=== PATIENT | male | born 1940 | race Caucasian/White ===

== ENCOUNTER 2017-10-29 21:26 | Inpatient (IN) | payer OTHER ==
[~2017-10-29] VITALS: Ht 182.9 cm; Wt 98.0 kg
[2017-10-29 22:14] LABS: BASOPHIL (%) 0.6 % (0-1); BASOPHIL COUNT 0.1 K/uL (0-0.1); EOSINOPHIL (%) 1.9 % (0-5); EOSINOPHIL COUNT 0.3 K/uL (0-0.3); HEMATOCRIT 42.1 % (38.0-50.0); HEMOGLOBIN 14.1 G/DL (12.5-16.6); IMMATURE GRANULOCYTE (%) 0.8 % (0.0-0.7); LYMPHOCYTE (%) 9.2 % (15-42); LYMPHOCYTE COUNT 1.6 K/uL (1.0-2.8); MCH 31.1 PG (29.0-34.0); MCHC 33.5 G/DL (30.0-36.0); MCV 92.7 FL (86-99); MONOCYTE (%) 6.2 % (3-12); MONOCYTE COUNT 1.1 K/uL (0-0.8); NEUTROPHIL (%) 81.3 % (45-76); NEUTROPHIL COUNT 14.5 K/uL (1.8-6.4); PLATELET COUNT 234 K/uL (156-360); RBC DIS.WIDTH-CV 12.3 % (11.8-14.6); RBC DIS.WIDTH-SD 42.3 % (39-53); RED BLOOD COUNT 4.54 M/uL (4.00-5.50); WHITE BLOOD COUNT 17.8 K/uL (4.1-10.2)
[2017-10-29 22:26] LABS: CHLORIDE 102 mEq/L (99-109); POTASSIUM 4.1 mEq/L (3.7-5.4); SODIUM 132 mEq/L (136-147)
[2017-10-29 22:28] LABS: GLUCOSE 111 mg/dL (70-99)
[2017-10-29 22:31] LABS: CREATININE 1.2 mg/dL (0.6-1.3); GFR ESTIMATE (CALCULATED) > 59 mL/min/ (58.99-99999); SERUM ETHYL ALCOHOL 169 mg/dL
[2017-10-29 22:32] LABS: UREA NITROGEN (BUN) 19 mg/dL (9-23)
[2017-10-29 22:34] LABS: CREATINE KINASE 171 IU/L (1-294)
[2017-10-29 22:40] LABS: PTT 19.4 SEC (25-37)
[2017-10-30 05:36] VITALS: BP 142/87
[2017-10-30 06:59] LABS: HEMATOCRIT 37.5 % (38.0-50.0); HEMOGLOBIN 12.4 G/DL (12.5-16.6); MCH 30.4 PG (29.0-34.0); MCHC 33.1 G/DL (30.0-36.0); MCV 91.9 FL (86-99); PLATELET COUNT 210 K/uL (156-360); RBC DIS.WIDTH-CV 12.1 % (11.8-14.6); RBC DIS.WIDTH-SD 41.1 % (39-53); RED BLOOD COUNT 4.08 M/uL (4.00-5.50)
[2017-10-30 07:27] LABS: CHLORIDE 103 MEQ/L (99-109); CREATININE 1.2 MG/DL (0.6-1.3); GFR ESTIMATE (CALCULATED) > 59 mL/min/ (58.99-99999); GLUCOSE 103 mg/dL (70-99); POTASSIUM 4.5 MEQ/L (3.7-5.4); SODIUM 134 MEQ/L (136-147); UREA NITROGEN (BUN) 19 mg/dL (9-23)
[2017-10-30 07:43] VITALS: BP 136/60
[2017-10-30 08:00] LABS: TROP-I INTERPRETATION NEGATIVE; TROPONIN-I < 0.01 ng/mL (0.0-0.30)
[2017-10-30 11:18] VITALS: BP 144/69
[2017-10-30] MEDS ORDERED: PLAVIX75 MG PO (13:33)
[2017-10-30] MEDS ORDERED: PEPCID20 MG PO (13:34)
[2017-10-30] MEDS ORDERED: SYNTHROID25 MCG PO (13:35)
[2017-10-30] MEDS ORDERED: PRAVACHOL40 MG PO (13:36)
[2017-10-30] MEDS ORDERED: ASPIRIN325 MG PO (13:37)
[2017-10-30] MEDS ORDERED: LISINOPRIL20 MG PO (13:38)
[2017-10-30] MEDS ORDERED: NORVASC10 MG PO (13:39)
[2017-10-30] MEDS ORDERED: VITAMIN D31000 UNI2 PO (13:43)
[2017-10-30 15:12] LABS: TROP-I INTERPRETATION NEGATIVE; TROPONIN-I < 0.01 ng/mL (0.0-0.30)
[2017-10-30 15:41] VITALS: BP 147/67
[2017-10-30 20:09] LABS: HEMATOCRIT 37.8 % (38.0-50.0); HEMOGLOBIN 12.7 G/DL (12.5-16.6); MCH 31.2 PG (29.0-34.0); MCHC 33.6 G/DL (30.0-36.0); MCV 92.9 FL (86-99); PLATELET COUNT 208 K/uL (156-360); RBC DIS.WIDTH-CV 12.5 % (11.8-14.6); RBC DIS.WIDTH-SD 42.6 % (39-53); RED BLOOD COUNT 4.07 M/uL (4.00-5.50); WHITE BLOOD COUNT 11.6 K/uL (4.1-10.2)
[2017-10-30 22:27] LABS: TROP-I INTERPRETATION NEGATIVE; TROPONIN-I < 0.01 ng/mL (0.0-0.30)
[2017-10-30 23:58] VITALS: BP 124/58
[2017-10-31 03:45] VITALS: BP 124/67
[2017-10-31 07:35] VITALS: BP 135/74
[2017-10-31 08:34] LABS: HEMATOCRIT 39.1 % (38.0-50.0); MCH 31.7 PG (29.0-34.0); MCHC 33.2 G/DL (30.0-36.0); MCV 95.4 FL (86-99); PLATELET COUNT 209 K/uL (156-360); RBC DIS.WIDTH-CV 12.5 % (11.8-14.6); RBC DIS.WIDTH-SD 43.8 % (39-53); WHITE BLOOD COUNT 12.4 K/uL (4.1-10.2)
[2017-10-31 09:00] LABS: ALBUMIN 3.9 G/DL (3.2-4.8); ALKALINE PHOSPHATASE 61 IU/L (3-129); ALT (GPT) 14 IU/L (3-49); AST (GOT) 23 IU/L (2-34); DIRECT BILIRUBIN 0.3 mg/dL (0.0-0.3); TOTAL BILIRUBIN 1.7 MG/DL (0.0-1.0); TOTAL PROTEIN 5.9 G/DL (6.4-8.3)
[2017-10-31 11:25] VITALS: BP 132/74
[2017-10-31 15:26] VITALS: BP 124/73
[2017-10-31 19:46] LABS: HEMOGLOBIN 12.9 G/DL (12.5-16.6); MCH 30.9 PG (29.0-34.0); MCHC 32.3 G/DL (30.0-36.0); MCV 95.7 FL (86-99); PLATELET COUNT 204 K/uL (156-360); RBC DIS.WIDTH-CV 12.5 % (11.8-14.6); RBC DIS.WIDTH-SD 44.1 % (39-53); RED BLOOD COUNT 4.18 M/uL (4.00-5.50); WHITE BLOOD COUNT 13.7 K/uL (4.1-10.2)
[2017-10-31 20:14] VITALS: BP 134/67
[2017-10-31 23:59] VITALS: BP 115/71
[2017-11-01 04:04] VITALS: BP 116/59
[2017-11-01 06:50] LABS: HEMATOCRIT 39.1 % (38.0-50.0); HEMOGLOBIN 12.6 G/DL (12.5-16.6); MCH 30.6 PG (29.0-34.0); MCHC 32.2 G/DL (30.0-36.0); MCV 94.9 FL (86-99); PLATELET COUNT 179 K/uL (156-360); RBC DIS.WIDTH-CV 12.3 % (11.8-14.6); RBC DIS.WIDTH-SD 42.7 % (39-53); RED BLOOD COUNT 4.12 M/uL (4.00-5.50); WHITE BLOOD COUNT 12.4 K/uL (4.1-10.2)
[2017-11-01 07:23] LABS: CHLORIDE 105 MEQ/L (99-109); CREATININE 1.2 MG/DL (0.6-1.3); GFR ESTIMATE (CALCULATED) > 59 mL/min/ (58.99-99999); GLUCOSE 92 mg/dL (70-99); POTASSIUM 4.7 MEQ/L (3.7-5.4); SODIUM 138 MEQ/L (136-147); UREA NITROGEN (BUN) 21 mg/dL (9-23)
[2017-11-01 07:30] VITALS: BP 129/63
[2017-11-01 11:00] VITALS: BP 132/66
[2017-11-01 15:10] VITALS: BP 126/63
[2017-11-01 20:10] LABS: HEMATOCRIT 37.2 % (38.0-50.0); MCH 30.1 PG (29.0-34.0); MCHC 32.3 G/DL (30.0-36.0); MCV 93.2 FL (86-99); PLATELET COUNT 208 K/uL (156-360); RBC DIS.WIDTH-CV 12.2 % (11.8-14.6); RBC DIS.WIDTH-SD 42.2 % (39-53); RED BLOOD COUNT 3.99 M/uL (4.00-5.50); WHITE BLOOD COUNT 12.5 K/uL (4.1-10.2)
[2017-11-01 23:05] VITALS: BP 139/65
[2017-11-02 08:00] VITALS: BP 121/71
[2017-11-02 17:05] VITALS: BP 126/62
[2017-11-02 22:57] VITALS: BP 131/60
[2017-11-03 06:09] LABS: HEMATOCRIT 36.2 % (38.0-50.0); HEMOGLOBIN 11.9 G/DL (12.5-16.6); MCH 30.5 PG (29.0-34.0); MCHC 32.9 G/DL (30.0-36.0); MCV 92.8 FL (86-99); PLATELET COUNT 230 K/uL (156-360); RBC DIS.WIDTH-CV 12.2 % (11.8-14.6)
[2017-11-03 06:29] LABS: CHLORIDE 104 MEQ/L (99-109); CREATININE 1.3 MG/DL (0.6-1.3); GFR ESTIMATE (CALCULATED) 57 mL/min/ (58.99-99999); GLUCOSE 100 mg/dL (70-99); POTASSIUM 4.2 MEQ/L (3.7-5.4); SODIUM 138 MEQ/L (136-147); UREA NITROGEN (BUN) 20 mg/dL (9-23)
[2017-11-03 07:35] VITALS: BP 136/67
[2017-11-03 10:25] VITALS: BP 120/62
[2017-11-03 14:49] VITALS: BP 109/62
[2017-11-03 22:53] VITALS: BP 111/62
[2017-11-04 07:10] VITALS: BP 139/74
[2017-11-04 15:10] VITALS: BP 132/66
[2017-11-04 23:53] VITALS: BP 113/62
[2017-11-05 05:38] LABS: HEMATOCRIT 34.4 % (38.0-50.0); HEMOGLOBIN 11.3 G/DL (12.5-16.6); MCH 30.3 PG (29.0-34.0); MCHC 32.8 G/DL (30.0-36.0); MCV 92.2 FL (86-99); PLATELET COUNT 267 K/uL (156-360); RBC DIS.WIDTH-CV 12.2 % (11.8-14.6); RBC DIS.WIDTH-SD 41.5 % (39-53); RED BLOOD COUNT 3.73 M/uL (4.00-5.50); WHITE BLOOD COUNT 9.8 K/uL (4.1-10.2)
[2017-11-05 06:01] LABS: CHLORIDE 107 MEQ/L (99-109); CREATININE 1.3 MG/DL (0.6-1.3); GFR ESTIMATE (CALCULATED) 57 mL/min/ (58.99-99999); GLUCOSE 97 mg/dL (70-99); POTASSIUM 4.2 MEQ/L (3.7-5.4); SODIUM 140 MEQ/L (136-147); UREA NITROGEN (BUN) 16 mg/dL (9-23)
[2017-11-05 07:38] VITALS: BP 141/78
[2017-11-05 16:03] VITALS: BP 116/71
[2017-11-06 00:31] VITALS: BP 110/58
[2017-11-06 07:12] VITALS: BP 134/67
[2017-11-06 15:15] VITALS: BP 122/69
== END 2017-11-06 17:51 | DRG 378 ==
LOC: EME 21:26 → EDOF 10-30 02:48 → 5EAST 10-30 02:48 → ENRESERV 10-30 03:05 → 5EAST 10-30 04:57
PROVIDERS: Family Medicine; Specialist
DX: K92.2 Gastrointestinal hemorrhage, unspecified (principal); K92.0 Hematemesis; R18.8 Other ascites; F10.129 Alcohol abuse with intoxication, unspecified; S01.112A Laceration without foreign body of left eyelid and periocular area, initial encounter; J43.9 Emphysema, unspecified; K21.9 Gastro-esophageal reflux disease without esophagitis; I69.320 Aphasia following cerebral infarction; I69.351 Hemiplegia and hemiparesis following cerebral infarction affecting right dominant side; W19.XXXA Unspecified fall, initial encounter; I10 Essential (primary) hypertension; E03.9 Hypothyroidism, unspecified; J01.90 Acute sinusitis, unspecified; F32.9 Major depressive disorder, single episode, unspecified; D64.9 Anemia, unspecified; I35.0 Nonrheumatic aortic (valve) stenosis; E78.5 Hyperlipidemia, unspecified; Z91.19 Patient's noncompliance with other medical treatment and regimen; Z90.49 Acquired absence of other specified parts of digestive tract; Z79.02 Long term (current) use of antithrombotics/antiplatelets; F17.200 Nicotine dependence, unspecified, uncomplicated; R47.02 Dysphasia
CPT/HCPCS: 70450; 70486; 71045; 71250; 72125; 73060; 73090; 74176; 80048; 80076; 82550; 82948; 84484; 85025; 85027; 85610; 85730; 87040; 93005; 93306; 93971; 97530 GP; 99281; 99285; C9113; G0480; J0696; J2250; J2405; J2765; J3411; J3475; J7030; S0028